=== PATIENT | female | born 1995 | race American Indian/Alaskan Native ===

== ENCOUNTER 2021-03-05 17:56 | Emergency (ER) | payer SELFPAY ==
--- NOTE | 2021-03-05 18:48 | Event Note ---
ED Screening Note Date of service: 03/05/21 Time: 18:44 ED Screening Note: 25-year-old obese -[place] female presents to the emergency room complaining of intermittent chest pain that radiates to her back for the last 2 days. Patient reports that the pain is worse when she gets anxious. Patient's states that the pain is located in her upper chest and radiates to her back. Patient denies any past medical history. She denies any family history of sudden heart . She does report a family history of hypertension. Patient reports that her pain is a 6 out of 10 and it feels like pressure. Patient currently is on no medications at this time. This initial assessment/diagnostic orders/clinical plan/treatment(s) is/are subject to change based on patients health status, clinical progression and re- assessment by fellow clinical providers in the ED. Further treatment and workup at subsequent clinical providers discretion. Patient/guardian urged not to elope from the ED as their condition may be serious if not clinically assessed and managed. Initial orders include: CBC cmp,cxr ekg, d-dimer, trop hcg. to see R/o PE, dissection SD
[2021-03-05] MEDS ORDERED: SODIUM CHLORIDE 0.9% 1000 ML 1,000 ML IV ONE (19:10)
[2021-03-05] MEDS ORDERED: cloNIDine 0.2 MG TAB PO ONE (19:14)
--- NOTE | 2021-03-05 19:18 | Emergency Department Report ---
HPI - General Chief Complaint: Chest Pain Time Seen by Provider: 03/05/21 18:59 - HPI HPI: Room 29 The patient is a 25-year-old female present with chief complaint of chest pain. Patient states since yesterday she has had palpitations. Patient states today she developed intermittent substernal chest pain. Patient states she called EMS and they arrived on scene to find her hypertensive with a systolic blood pressure in the 200s. Patient states she was never diagnosed with hypertension and never been on any medications for it. EMS performed an EKG and told the patient I did not see any abnormalities. The patient states she continued to have the pain so she decided to come to the emergency department for evaluation. Patient denies pleurisy or any recent long car trip/flights. Patient denies history of fever but states she has had an occasional cough since yesterday that is nonproductive. Patient denies nausea vomiting or diarrhea ED Past Medical Hx - Past Medical History Previous Medical History?: No - Surgical History Past Surgical History?: No - Family History Family history: no significant - Social History Smoking Status: Never Smoker Substance Use Type: None (Denies illicit drug use), Alcohol (Occasional) - Medications Home Medications: Home Medications Medication Instructions Recorded Confirmed Last Taken Type amLODIPine 5 mg PO DAILY #90 tab 03/05/21 Unknown Rx ED Review of Systems ROS: Stated complaint: CHEST PAIN HIGH BP Other details as noted in HPI Constitutional: denies: fever Eyes: denies: eye pain ENT: denies: throat pain Respiratory: denies: shortness of breath Cardiovascular: chest pain, palpitations Endocrine: no symptoms reported Gastrointestinal: denies: nausea, vomiting, diarrhea Genitourinary: denies: dysuria Musculoskeletal: denies: back pain Neurological: denies: headache Physical Exam - Physical Exam Vital Signs: Vital Signs 03/05/21 18:15 Temperature 99.1 F Pulse Rate 110 H Respiratory 16 Rate Blood Pressure 189/116 [Left] O2 Sat by Pulse 98 Oximetry Vital Signs 03/05/21 03/05/21 18:15 21:04 Temperature 99.1 F 98.9 F Pulse Rate 110 H 80 Respiratory 16 12 Rate Blood Pressure 189/116 145/93 [Left] O2 Sat by Pulse 98 98 Oximetry Physical Exam: GENERAL: The patient is well-developed well-nourished female sitting in chair not appearing to be in acute distress. [] HEENT: Normocephalic. Atraumatic. Extraocular motions are intact. Patient has moist mucous membranes. NECK: Supple. Trachea midline CHEST/LUNGS: Clear to auscultation. There is no respiratory distress noted. HEART/CARDIOVASCULAR: Regular. There is tachycardia. There is no gallop rub or murmur. ABDOMEN: Abdomen is soft, nontender. Patient has normal bowel sounds. There is no abdominal distention. SKIN: There is no rash. There is no edema. There is no diaphoresis. NEURO: The patient is awake, alert, and oriented. The patient is cooperative. The patient has no focal neurologic deficits. The patient has normal speech. GCS 15 MUSCULOSKELETAL: There is no evidence of acute injury. ED Course Vital Signs 03/05/21 18:15 Temperature 99.1 F Pulse Rate 110 H Respiratory 16 Rate Blood Pressure 189/116 [Left] O2 Sat by Pulse 98 Oximetry ED Medical Decision Making - Lab Data Result diagrams: 03/05/21 18:45 03/05/21 18:45 Laboratory Tests 03/05/21 03/05/21 03/05/21 18:45 18:45 18:45 WBC 6.8 RBC 4.82 Hgb 10.9 Hct 34.2 MCV 71 L MCH 23 L MCHC 32 RDW 17.0 H Plt Count 332 Lymph % (Auto) 25.7 Bee % (Auto) 8.7 H Eos % (Auto) 0.3 Baso % (Auto) 0.7 Lymph # (Auto) 1.7 Bee # (Auto) 0.6 Eos # (Auto) 0.0 Baso # (Auto) 0.0 Seg Neutrophils % 64.6 Seg Neutrophils # 4.4 D-Dimer < 135.00 Sodium 137 Potassium 3.0 L Chloride 99.8 Carbon Dioxide 23 Anion Gap 17 BUN 10 Creatinine 0.6 Estimated GFR > 60 BUN/Creatinine Ratio 17 Glucose 106 H Calcium 9.3 Total Bilirubin 0.20 AST 16 ALT 12 Alkaline Phosphatase 99 Troponin T < 0.010 Total Protein 8.6 H Albumin 5.0 Albumin/Globulin Ratio 1.4 TSH Free T4 HCG, Quant 03/05/21 03/05/21 03/05/21 18:45 19:21 20:12 WBC RBC Hgb Hct MCV MCH MCHC RDW Plt Count Lymph % (Auto) Bee % (Auto) Eos % (Auto) Baso % (Auto) Lymph # (Auto) Bee # (Auto) Eos # (Auto) Baso # (Auto) Seg Neutrophils % Seg Neutrophils # D-Dimer Sodium Potassium Chloride Carbon Dioxide Anion Gap BUN Creatinine Estimated GFR BUN/Creatinine Ratio Glucose Calcium Total Bilirubin AST ALT Alkaline Phosphatase Troponin T < 0.010 Total Protein Albumin Albumin/Globulin Ratio TSH 1.690 Free T4 1.43 HCG, Quant < 2 - EKG Data -: EKG Interpreted by Me EKG shows normal: sinus rhythm, axis Rate: tachycardia (111 bpm) - EKG Data When compared to previous EKG there are: previous EKG unavailable Interpretation: nonspecific ST-T wave marcelle (T wave inversion lead III) - Radiology Data Radiology results: report reviewed (Chest x-ray), image reviewed (Chest x-ray) interpreted by me: Chest x-ray-no definite focal infiltrates, no pneumothorax [facility] [address] [place] [address] XRay Report Signed Patient: MELLISSA AGUILERA MR#: [id number] : 1995 Acct:[id number] Age/Sex: 25 / F ADM Date: 03/05/21 Loc: ED Attending Dr: Ordering Physician: SINDY BLAKELY Date of Service: 03/05/21 Pro cedure(s): XR chest routine 2V Accession Number(s): [id number] cc: SINDY BLAKELY Fluoro Time In Minutes: CHEST 2 VIEWS INDICATION / CLINICAL INFORMATION: Midsternal chest pain radiates back. FINDINGS: SUPPORT DEVICES: None. HEART / MEDIASTINUM: No significant abnormality. LUNGS / PLEURA: No si gnificant pulmonary or pleural abnormality. No pneumothorax. ADDITIONAL FINDINGS: No significant additional findings. IMPRESSION: 1. No acute findings. Signer Name: Alexis Johnson MD Signed: 03/05/2021 8:04 PM Workstation Name: [id number] Transcribed By: Dictated By: Alexis Johnson MD Electronically Authenticated By: Alexis Johnson MD Signed Date/Time: 03/05/212003 DD/ 03 TD/TT: Print Cancel - Differential Diagnosis Hypertensive urgency, pericarditis, GERD, PE, ACS Critical care attestation.: If time is entered above; I have spent that time in minutes in the direct care of this critically ill patient, excluding procedure time. ED Disposition Clinical Impression: Hypertension, Atypical chest pain Disposition: 01 HOME / SELF CARE / HOMELESS Is pt being admited?: No Does the pt Need Aspirin: No Condition: Stable Instructions: Nonspecific Chest Pain, Adult, Hypertension (ED), Hypertension, Adult, [id number] Additional Instructions: Return to the emergency department should you develop worsening symptoms, inability to tolerate food or liquids, high fever or any other concerns Prescriptions: amLODIPine 5 mg PO DAILY #90 tab Referrals: PRIMARY CARE, [Primary Care Provider] - 3-5 Days Time of Disposition: 21:06
[2021-03-05 19:19] LABS: Basophils % (Auto) 0.7 % (0.0-1.8); Eosinophils % (Auto) 0.3 % (0.0-4.3); Hematocrit 34.2 % (30.3-42.9); Hemoglobin 10.9 gm/dl (10.1-14.3); Lymphocytes # (Auto) 1.7 K/mm3 (1.2-5.4); Lymphocytes % (Auto) 25.7 % (13.4-35.0); Mean Corpuscular HGB Conc 32 % (30-34); Mean Corpuscular Volume 71 fl (79-97); Monocytes # (Auto) 0.6 K/mm3 (0.0-0.8); Monocytes % (Auto) 8.7 % (0.0-7.3); Platelet Count 332 K/mm3 (140-440); Red Blood Count 4.82 M/mm3 (3.65-5.03)
[2021-03-05 19:35] LABS: Alanine Aminotransferase 12 units/L (7-56); Blood Urea Nitrogen 10 mg/dL (7-17); Calcium 9.3 mg/dL (8.4-10.2); Hemolysis Index 3
[2021-03-05 19:42] LABS: BUN/Creatinine Ratio 17
[2021-03-05 19:49] LABS: Free T4 (Free Thyroxine) 1.43 ng/dL (0.76-1.46)
[2021-03-05] MEDS ORDERED: POTASSIUM CHLORIDE ER 20 MEQ TAB PO ONE (19:55)
--- NOTE | 2021-03-05 20:09 | XRay Report ---
CHEST 2 VIEWS INDICATION / CLINICAL INFORMATION: Midsternal chest pain radiates back. FINDINGS: SUPPORT DEVICES: None. HEART / MEDIASTINUM: No significant abnormality. LUNGS / PLEURA: No significant pulmonary or pleural abnormality. No pneumothorax. ADDITIONAL FINDINGS: No significant additional findings. IMPRESSION: 1. No acute findings. Signer Name: Alexis Johnson MD Signed: 03/05/2021 8:04 PM Workstation Name: [id number]
[2021-03-05 21:05] VITALS: BP 145/93
--- NOTE | 2021-03-12 14:03 | Electrocardiograph Report ---
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
== END 2021-03-05 21:15 | disposition home or self-care (01) ==
LOC: ED 17:56
DX: I10 Essential (primary) hypertension (principal); Z72.89 Other problems related to lifestyle; Z79.899 Other long term (current) drug therapy
CPT/HCPCS: 36415; 71046; 80053; 84439; 84443; 84484; 84702; 85025; 85379; 93005; 96360; 99284; J7030